=== PATIENT | female | born 1955 | race Caucasian/White ===

== ENCOUNTER 2020-06-10 11:03 | Emergency (ER) | payer MEDICARE, SELFPAY ==
--- NOTE | ~2020-06-10 | XR_ITS ---
EXAMINATION: [id number] DATE: 06/10/2020 11:46 INDICATION: Left rib pain. TECHNIQUE: A frontal view of the chest and 3 views of the left ribs were obtained. COMPARISON: None. FINDINGS: There is mild atelectasis in the lower lung zones. There is blunting of right lateral costo phrenic angle. No pneumothorax. The heart size is normal. There are multiple old healed bilateral rib fractures. There are acute fractures of left third and fourth ribs. There are changes of posterior i nstrumentation of the thoracolumbar spine. IMPRESSION: 1. Acute fractures of left third and fourth ribs. 2. Blunting of right lateral costophrenic angle, consistent with scarring versus small pleural effusi on. Reviewed, dictated and finalized at location B. AND TURN UP TECHNICIAN IMPRESSION: 1. Acute fractures of left third and fourth ribs. 2. Blunting of right lateral costophrenic angle, consistent with scarring versu s small pleural effusion.
[2020-06-10 11:11] VITALS: BP 136/64; PULSE 113; RESP 20; TEMP 36.5; O2SAT 95
--- NOTE | 2020-06-10 11:35 | ED.CHESTPAIN ---
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 States is painful enough at night she cannot sleep on the left side. Has no cough or fever, nausea vomiting or diarrhea, has been moved here recently and has no PCP Related Data Home Medications Medication Instructions Recorded Confirmed Unable to Obtain Home Medications 06/10/20 06/10/20 Allergies Allergy/AdvReac Type Severity Reaction Status Date / Time azithromycin [From Zithromax] Allergy Rash Verified 06/10/20 12:07 hydrocodone Allergy Rash Verified 06/10/20 11:35 meperidine [From Demerol] Allergy Rash Verified 06/10/20 11:22 Penicillins Allergy Difficulty Verified 06/10/20 11:22 Breathing Sulfa (Sulfonamide Allergy Difficulty Verified 06/10/20 11:22 Antibiotics) Breathing Review of Systems Review of Systems: Narrative: CONSTITUTIONAL: Denies fever, chills, sweats. EYES: Denies visual changes, redness, discharge. ENT: Denies rhinorrhea, congestion, sore throat, otalgia. CARDIOVASCULAR: Denies chest pain, palpitations, edema. RESPIRATORY: Denies dyspnea, wheezing, cough left-sided chest wall pain GASTROINTESTINAL: Denies abdominal pain, nausea, vomiting, diarrhea. GENITOURINARY: Denies dysuria, hematuria, abnormal discharge SKIN: Denies rash or itching. NEUROLOGIC: Denies numbness, or focal weakness. PSYCHIATRIC: Denies anxiety or depression. [facility] Past Medical History Medical History (Updated 06/10/20 @ 12:20 by Yen Goncalves CNP) Depression Diabetes mellitus Hernia High cholesterol Spinal stenosis Surgical History Surgical History History of cholecystectomy History of hysterectomy Family History Family History Other Kidney disease Social History Social History (Updated 06/10/20 @ 11:46 by Yen Goncalves CNP) Smoking status: Current every day smoker Tobacco type: e-cigarettes/vaping Alcohol intake: never Comments At time of signature, I agree with nursing past medical, surgical, social and family history. There is no relevant family history pertinent to the presenting complaint. Exam Narrative: Exam Narrative: GENERAL: This is a well-nourished, well-developed patient, in mild distress. HEAD: normocephalic, atraumatic. EYES: Sclera clear/white. Vision is grossly intact. EARS: External ears normal, Hearing grossly intact. NOSE: External nose normal without nasal discharge, nares without redness, no rhinorrhea. THROAT: Mucous membranes moist, NECK: Neck supple, non-tender CARDIOVASCULAR: Tachycardic rate and rhythm without murmurs, gallops, or rubs. RESPIRATORY: Diminished to auscultation. Breath sounds equal bilaterally but shallow(due to pain). No wheezes, rales, or rhonchi. Pain with inspiration on left GASTROINTESTINAL: Abdomen soft, , SKIN: warm, intact with no suspicious lesions or rash, good texture and turgor. NEURO: awake, alert, and oriented to person, place and time. There were no obvious focal neurologic abnormalities. Steady gait EXTREMITIES: Normal range of motion. BACK: Nontender without deformity Course Course Emergency Course: Patient comes to express care for left-sided chest wall pain that started within the last day or 2 because of unpacking of boxes from moving X-ray of left rib and PA of chest done- fracture of L third and fourth ribs. blunting of R lateral costophrenic angle- scarring vs small pleural effusion Start on levaquin 750 mg x 5 days, incentive spiromometer. Tamara
== END 2020-06-10 12:26 | disposition home or self-care (01) ==
PROVIDERS: Emergency Provider Nurse Practitioner
DX: S22.42XA Multiple fractures of ribs, left side, initial encounter for closed fracture (principal); X58.XXXA Exposure to other specified factors, initial encounter; J18.9 Pneumonia, unspecified organism; F17.200 Nicotine dependence, unspecified, uncomplicated; E11.9 Type 2 diabetes mellitus without complications; E78.00 Pure hypercholesterolemia, unspecified; M48.00 Spinal stenosis, site unspecified
CPT/HCPCS: 71101; 99213; G0463

== ENCOUNTER 2022-04-06 07:11 | Outpatient (CLI) | payer MEDICARE, SELFPAY ==
[2022-04-06 07:57] LABS: Anion Gap 11 mmol/L (8-16); Blood Urea Nitrogen 19 mg/dL (7-17); Calcium 8.7 mg/dL (8.4-10.2); Carbon Dioxide 26 mmol/L (22-30); Chloride 104 mmol/L (98-107); Estimated Glomerular Filt Rate 50; Glucose 125 mg/dL (65-110); Potassium 4.5 mmol/L (3.4-5.0); Sodium 141 mmol/L (137-145)
== END 2022-04-06 07:12 | disposition home or self-care (01) ==
PROVIDERS: Visit Provider Registered Nurse
DX: E87.5 Hyperkalemia (principal)
CPT/HCPCS: 36415; 80048

== ENCOUNTER → 2022-04-11 08:29 | Outpatient (CLI) | payer MEDICARE, MEDICAID, SELFPAY ==
--- NOTE | ~2022-04-11 | CT_ITS ---
EXAMINATION: CT lung screening DATE: 04/11/2022 08:46 INDICATION: Nicotine dependence TECHNIQUE: Computed tomography (CT) of the chest was performed without intravenous contrast. Addition al 3D reconstructions utilizing coronal maximum intensity projection (MIP) were performed. Automated exposure control and iterative reconstruction technique were employed. The dose-length product was 71 .67 mGy-cm. COMPARISON: 06/11/2020 FINDINGS: Unchanged elevation of the lateral right hemidiaphragm. Mild right basilar atelectasis. Moderate emph ysema. No suspicious pulmonary nodules. No pneumonia, pulmonary edema or pleural effusion. Heart size is normal. Atherosclerotic coronary artery calcific location. No pericardial effusion. Thoracic aort a is normal in caliber. Mediastinal lymphadenopathy including a 3.9 x 3.4 x 2.7 similar precarinal ly mph node as well as a 3.3 x 2.2 x 1.5 cm anterior mediastinal lymph node positioned anterior to the a scending thoracic aorta. No evident hilar or supraclavicular lymphadenopathy. Right paravertebral magali gical clips in the upper abdomen suggesting prior right nephrectomy. Postoperative change of prior L1 partial corpectomy with partially visualized interbody strut graft. Associated instrumented posterio r spinal fusion with bilateral vertical oxana and laminar hook fixation extending caudally from T11 and beyond the inferior margin of the [id number] which is at L1-L2. Chronic-appearing T7 compression fracture with 50% anterior vertebral body height loss. IMPRESSION: 1. Lung-RADS category 1: Negative. Continue annual screening with noncontrast low-dose chest CT in 12 months. 2. Prominently enlarged mediastinal lymphadenopathy which raises concern for lymphoma or metastatic d isease. Correlate for any history of prior malignancy. Would recommend further evaluation with PET/CT to assess for a potential primary lesion or any additional lymphadenopathy more readily accessible f or biopsy. Reviewed, dictated and finalized at location B. IMPRESSION: 1. Lung-RADS category 1: Negative. Continue annual screening with noncontrast l ow-dose chest CT in 12 months. 2. Prominently enlarged mediastinal lymphadenopathy which raises concern for ly mphoma or metastatic disease. Correlate for any history of prior malignancy. Wo uld recommend further evaluation with PET/CT to assess for a potential primary lesion or any additional lymphadenopathy more readily accessible for biopsy.
== END ==
PROVIDERS: PCP Registered Nurse; Visit Provider Registered Nurse
DX: Z12.2 Encounter for screening for malignant neoplasm of respiratory organs (principal); F17.210 Nicotine dependence, cigarettes, uncomplicated
CPT/HCPCS: 71271

== ENCOUNTER 2022-04-18 08:20 | Outpatient (CLI) | payer MEDICARE, MEDICAID, SELFPAY ==
--- NOTE | ~2022-04-18 | US_ITS ---
EXAMINATION: US art doppler w press LE BI DATE: 04/18/2022 09:18 INDICATION: Left lower limb pain and paresthesias with tingling and numbness at the left toes. Periva scular is factors of hypercholesterolemia, diabetes and smoking. TECHNIQUE: Segmental pressures and plethysmographic and Doppler waveforms of the brachial and lower e xtremity arteries were obtained. COMPARISON: None. FINDINGS: Right and left brachial artery pressures of 147 mm Hg and 137 mm Hg, respectively, are concordant (no rmal difference <= 30 mmHg). The right and left high-thigh pressure indices are 0.92 and 1.03, respec tively (normal > 1.2). The right ankle-brachial index (BHUMI) is 1.14 (normal >= 0.9-1). The right great toe-brachial index (T BI) is 0.56 (normal >= 0.6-0.8). The right lower extremity segmental pressure gradients are normal (n ormal gradients <= 20-30 mmHg between adjacent levels on the same leg or the same levels on the two l egs). Arterial waveforms are triphasic at the right common femoral, superficial femoral, popliteal an d dorsalis pedis arteries and biphasic at the right posterior tibial artery with brisk systolic upstr okes throughout. The left BHUMI is 0.95. The left TBI is 0.37. The left lower extremity segmental pressure gradients are increased between the and left [id number] popliteal artery and both of the left dorsalis pedis a nd posterior tibial arteries. Arterial waveforms are triphasic at the left common femoral and poplite al arteries and biphasic at the remaining arteries with brisk systolic upstrokes throughout. IMPRESSION: 1. Bilateral arterial occlusive disease with mildly decreased bilateral high thigh pressure indices, borderline left BHUMI, mildly decreased right TBI and moderately decreased left TBI. Reviewed, dictated and finalized at location A. IMPRESSION: 1. Bilateral arterial occlusive disease with mildly decreased bilateral high th igh pressure indices, borderline left BHUMI, mildly decreased right TBI and moder ately decreased left TBI.
== END 2022-04-18 08:21 | disposition home or self-care (01) ==
PROVIDERS: PCP Registered Nurse; Visit Provider Registered Nurse
DX: R09.89 Other specified symptoms and signs involving the circulatory and respiratory systems (principal); E11.65 Type 2 diabetes mellitus with hyperglycemia; F17.200 Nicotine dependence, unspecified, uncomplicated; I73.9 Peripheral vascular disease, unspecified
CPT/HCPCS: 93923